=== PATIENT | female | born 1960 | race Two or more races ===

== ENCOUNTER 2024-11-02 15:48 | Emergency (ER) | payer MEDICARE, MEDICAID, SELFPAY ==
[2024-11-02 16:14] VITALS: BP 137/65; PULSE 65; RESP 18; TEMP 36.6; O2SAT 95
--- NOTE | 2024-11-02 16:25 | EKG_ITS ---
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
--- NOTE | 2024-11-02 16:25 | XR_ITS ---
Examination: PA chest single view TECHNIQUE: Upright PA chest single view Exam date and time: November 02, 2024 at 1640 hours INDICATIONS: Headaches chest pain dizziness beginning 4 days ago. FINDINGS: Mild enlargement cardiac contour Mild vascular congestion No lobar pneumonia or pulmonary edema Mild accentuation basilar bronchovascular markings IMPRESSION: Mild vascular congestion Suspicious for basilar bronchitis
--- NOTE | 2024-11-02 16:25 | XR_ITS ---
Examination: CT brain head without contrast. 2-D sagittal coronal reconstructions Date and time of exam:November 02, 2024 at 1651 hours Comparison August 09, 2021 , History left basal ganglia CVA INDICATIONS: Dizziness episodes beginning 4 days ago with numbness in both arms CTDI: vol (mGy):56.8 DLP: (mGycm):1087 Technique: Multiple CT axial sections of the brain have been obtained, 5 mm slice thickness. Contrast has not been administered. 2-D sagittal, coronal reconstructions have been obtained Low dose protocols were performed. One or more of the following dose reduction techniques were used; automated exposure control, adjustment of the mA and/or KV according to patient size, use of iterative reconstruction technique. Findings: No significant ventricular enlargement. Intra-axial or extra-axial hemorrhage density is not seen. No mass effect or midline shift Basal cisterns are not remarkable. Fourth ventricle is midline. Cranial vault intact. Acute left maxillary sinusitis Bilateral chronic mastoiditis Impression: Negative for acute hemorrhage, mass effect or midline shift As clinically warranted, consider brain MRI follow-up stroke protocol
--- NOTE | 2024-11-02 16:26 | PD.EDADULT ---
ED General RME/HPI General Chief complaint: General Adult/Misc Complain Stated complaint: UTI SINCE THURSDAY NOT GETTING BETTER Time Seen by Provider: 11/02/24 16:08 Arrival date/time: 11/02/24 15:48 RME / HPI RME / HPI narrative: 64-year-old female patient with significant history of hypothyroidism, hypertension diabetes mellitus, came in for evaluation regarding multiple complaints. Patient told me that this been having dizziness with vertigo, described as everything spinning, for the last few days, associated with pain and numbness to the left upper extremity. Patient also complained of not feeling well. Including chest discomfort. Severity mild. Patient is currently taking antibiotic for UTI however she thinks is not working. Denies any fever denies any cough denies any abdominal pain no medications taken prior to arrival. Patient is ambulatory with walker. Related Data Home Medications ?Medication ?Instructions ?Recorded ?Confirmed aspirin 81 mg tablet,delayed 81 mg PO QDAY ##0 11/04/16 04/01/20 release hydrochlorothiazide 25 mg tablet 25 mg PO QAM #0 tabs 11/04/16 04/01/20 levothyroxine 100 mcg tablet 100 mcg PO QDAY #0 tabs 11/04/16 04/01/20 (Synthroid) lisinopril 20 mg tablet 20 mg PO QDAY #0 tabs 11/04/16 04/01/20 lovastatin 20 mg tablet 20 mg PO HS #0 tabs 11/04/16 04/01/20 metformin 500 mg tablet 500 mg PO BIDAC #0 tabs 11/04/16 04/01/20 (Glucophage) Previous Rx's ?Medication ?Instructions ?Recorded acetaminophen 500 mg tablet (Pain 1,000 mg (2 x 500 mg) PO Q6H PRN 12/29/23 Relief (acetaminophen)) pain #30 tabs lidocaine 5 % topical patch 1 patch topical QDAY #15 ea 12/29/23 (Lidoderm) acetaminophen 300 mg-codeine 30 mg 1 tab PO Q8H PRN pain #20 tabs 12/30/23 tablet meclizine 25 mg tablet 25 mg PO BID PRN dizziness #14 tabs 11/02/24 Allergies Allergy/AdvReac Type Severity Reaction Status Date / Time No Known Allergies Allergy Verified 12/29/23 09:22 Review of Systems Review of Systems Narrative Review of Systems: Review of system reviewed and within normal limits except mentioned in HPI ED Exam Narrative Physical exam: VITAL SIGNS: Reviewed. GENERAL APPEARANCE: Alert and interactive, follows commands, no acute distress, HEAD AND FACE: Non-traumatic. ENT: PERRL, pink conjunctivitis, eyelid no trauma, Mucous membrane moist. NECK: Supple, nontender, no nuchal rigidity. CHEST: No tenderness, no crepitus, no paradoxical movement, no retractions. LUNGS: Clear, well ventilated, symmetric, no rales, no wheezing, no ronchi, no stridor, good breath sounds bilaterally. HEART: Regular rate, regular rhythm, no murmur, no gallops. ABDOMEN: Soft, positive bowel sounds, nondistended, no guarding, nontender, no rebound, no masses, RECTAL: Deferred. GENITAL: Deferred. NEUROLOGICAL: Gross motor function intact sensory function intact, Appropriate for age. MUSCULOSKELETAL: low back nontender, full range of motion. EXTREMITIES: Nontender, full range of motion. SKIN: Color pink, dry, no rash, no lacerations, no abrasions, no contusions. LYMPHATICS: Deferred. Course Quality Measures none Orders Category Date Time Status EKG (ED ONLY) *Do not use* NOW Care 11/02/24 16:[address] head/brain wo con Stat Exams 11/02/24 16:25 Completed EKG (ED Only) Stat Exams 11/02/24 16:25 Draft XR chest 1V Stat Exams 11/02/24 16:25 Completed B-Type Natriuretic Peptide Stat Lab 11/02/24 16:39 Completed CBC Stat Lab 11/02/24 16:39 Completed Comprehensive Metabolic Panel Stat Lab 11/02/24 16:39 Completed Partial Thromboplastin Time Stat Lab 11/02/24 16:39 Completed Prothrombin Time with INR Stat Lab 11/02/24 16:39 Completed Troponin I Stat Lab 11/02/24 16:39 Completed Troponin I Stat Lab 11/02/24 19:36 Completed Urinalysis, C/S if Indicated Stat Lab 11/02/24 16:52 Completed Meclizine HCl [Antivert] Med 11/02/24 16:25 Discontinued 25 mg PO X1 ONE Vital Signs Vital signs: Vital Signs Temperature 97.8 F 11/02/24 16:14 Pulse Rate 65 11/02/24 16:14 Respiratory Rate 18 11/02/24 16:14 Blood Pressure 137/65 H 11/02/24 16:14 Pulse Oximetry (%) 95 11/02/24 16:14 Oxygen Delivery Method Room Air 11/02/24 16:14 [facility] Patient data External records reviewed:: None Clinical information provided by:: patient Social determinants that could affect healthcare access:: none Patient has the following chronic illnesses:: # Hypertension diabetes mellitus How is presenting disease/condition affected by chronic disease/condition?: exacerbated by Evaluation data The following diagnostics were reviewed and interpreted by me:: lab results, radiology exam(s) and EKG tracing(s) Lab and/or radiology exams considered but not ordered:: None Interpretation Summary: See results in MDM Medications Medications considered but not ordered:: None Medication administrations:: Medication Administration History Discontinued Medications Meclizine HCl (Meclizine Hcl 25 Mg Tablet) 25 mg PO X1 ONE Stop: 11/02/24 16:26 Last Admin: 11/02/24 16:30 Dose: 25 mg Documented By: OA Meclizine Consultations Consultation(s) initiated? (list below): No Diagnosis Differential Diagnosis ED Complaint MDM: Dizziness, UTI, dehydration Most likely diagnosis given after review of the tests above:: Dizziness, UTI Admission Indicated Admission indicated?: not indicated Explain why admission is indicated or not indicated:: Stable Admission Request Was there a request for admission?: No Disposition Plan Disposition Plan: Discharge Discharge Attestation Discharge Attestation: The patient and all family members were given an opportunity to ask questions and understood the discharge instructions. Discharge instructions specifically effects, indications for sooner follow up or return to the emergency department, and the expected course of current diagnosis. Patient condition: Stable Medical Decision Making [facility] Narrative MDM Narrative: 64-year-old female patient with significant history of hypothyroidism, hypertension diabetes mellitus, came in for evaluation regarding multiple complaints. Patient told me that this been having dizziness with vertigo, described as everything spinning, for the last few days, associated with pain and numbness to the left upper extremity. Patient also complained of not feeling well. Including chest discomfort. Severity mild. Patient is currently taking antibiotic for UTI however she thinks is not working. Denies any fever denies any cough denies any abdominal pain no medications taken prior to arrival. Patient is ambulatory with walker. EKG showed sinus bradycardia, ventricular rate of 81 bpm, no ST segment elevation depression noted. CT scan of the head came back unremarkable. Laboratory workup was significant for UTI. However it was contaminated. No leukocytosis noted. Patient troponin was noted to be 0.050. Repeat troponin is still the same. Patient is denying any chest pain. Patient was noted to be ambulatory with a walker. Patient appears nontoxic and hemodynamically stable. Patient discharged home and instructed to follow-up with primary care provider in 24 to 48 hours. Instructed to return to the emergency department immediately if worsening of symptoms Differential Diagnosis Differential Diagnosis: Dizziness, UTI, dehydration Lab Data 11/02/24 16:39 11/02/24 16:39 Labs: Lab Results 11/02/24 11/02/24 11/02/24 Range/Units 16:39 16:52 19:36 WBC 6.7 (3.6-11.0) Thou/mm3 RBC 3.05 L (4.00-5.20) Miln/mm3 Hgb 11.3 L (12.0-16.0) g/dL Hct 33.2 L (36.0-46.0) % MCV 109 H (80-100) fL MCH 37.0 H (25.0-35.0) pg MCHC 34.0 (31.0-37.0) g/dl RDW Std Deviation 70.5 H (36.4-46.3) fL Plt Count 179 (140-440) Thou/mm3 Neut % (Auto) 48 (37-80) % Lymph % (Auto) 42 (10-50) % Hill % (Auto) 5 (0-12) % Eos % (Auto) 4 (0-10) % Baso % (Auto) 1 (0-2.5) % Neut # (Auto) 3.2 (1.8-7.7) Thou/mm3 Lymph # (Auto) 2.8 (1.0-4.8) Thou/mm3 Hill # (Auto) 0.4 (0.0-0.8) Thou/mm3 Eos # (Auto) 0.3 (0.0-0.5) Thou/mm3 Baso # (Auto) 0.1 (0.0-0.2) Thou/mm3 Immature Gran # (Auto) 0.01 H (0.00-0.00) Thou/mm3 Absolute Nucleated RBC 0.00 (0.00-0.00) Thou/mm3 Immature Gran % 0 (0-0) % Nucleated RBC % 0 (0) /100 WBC PT 11.0 (9.0-12.2) Seconds INR 1.0 (0.9-1.3) APTT 25.3 (22.0-36.0) Seconds Sodium 136 (136-145) mMol/L Potassium 5.3 H (3.4-5.1) mMol/L Chloride 99 (98-107) mMol/L Carbon Dioxide 29.9 (20.0-31.0) mMol/L Anion Gap 7 (7-16) BUN 34 H (9-23) mg/dL Creatinine 1.9 H (0.6-1.3) mg/dL Estim Creat Clear Calc Not Performed. eGFR 29 L (60 - ) See Note BUN/Creatinine Ratio 18 (12-20) Ratio Glucose 93 (74-106) mg/dL Calculated Osmolality 279 (275-295) Calcium 9.3 (8.3-10.6) mg/dL Corrected Calcium 9.3 (8.5-10.1) mg/dL Total Bilirubin 0.5 (0.3-1.2) mg/dL AST 24 (0-34) U/L ALT 9 L (10-49) U/L Alkaline Phosphatase 45 L (46-116) U/L Troponin I 0.050 H* 0.050 H* (0.0-0.045) ng/mL B-Natriuretic Peptide 103 H (0-100) pg/mL Total Protein 8.0 (5.7-8.2) gm/dL Albumin 4.0 (3.4-4.8) gm/dL Globulin 4.0 H (2.3-3.5) gm/dL Albumin/Globulin Ratio 1.0 L (1.2-2.2) Ur Collection Type Clean Catch Urine Color Yellow (Lt Yel-Yel) Urine Clarity Turbid A (Clear/Hazy) Urine pH 5.5 (5.0-7.0) Ur Specific [place] 1.019 (1.001-1.035) Urine Protein Trace (Neg - Trace) Urine Glucose (UA) Negative (Negative) Urine Ketones Negative (Negative) Urine Blood 1+ A (Negative) Urine Nitrite Negative (Negative) Urine Bilirubin Negative (Negative) Urine Urobilinogen (Auto) 3.0 (0.0-1.0) mg/dL Ur Leukocyte Esterase Positive (Negative) Urine RBC 6 H (0-3) /hpf Urine WBC 29 H (0-5) /hpf Ur Squamous Epith Cells 20 H (0-5) /hpf Urine Bacteria 2+ A (None) Hyaline Casts 3 H (0-1) /hpf Ur Culture Indicated? Contaminated Discharge Plan Plan Patient Disposition: HOME (Self Care) Disposition Comment: Stable Prescriptions/Referrals Prescriptions/Med Rec: New meclizine 25 mg tablet 25 mg PO BID PRN (Reason: dizziness) Qty: 14 0RF No Action metformin [Glucophage] 500 MG tablet 500 mg PO BIDAC Qty: 0 lisinopril 20 MG tablet 20 mg PO QDAY Qty: 0 aspirin 81 mg Tablet,Delayed Release (Dr/Ec) 81 mg PO QDAY Qty: 0 levothyroxine [Synthroid] 100 mcg Tablet 100 mcg PO QDAY Qty: 0 hydrochlorothiazide 25 MG tablet 25 mg PO QAM Qty: 0 lovastatin 20 MG tablet 20 mg PO HS Qty: 0 acetaminophen [Pain Relief (acetaminophen)] 500 mg tablet 1,000 mg PO Q6H PRN (Reason: pain) Qty: 30 0RF lidocaine [Lidoderm] 5 % adhesive patch,medicated 1 patch topical QDAY Qty: 15 0RF Rx Instructions: leave on most painful area for up to 12 hrs acetaminophen-codeine 300-30 mg tablet 1 tab PO Q8H PRN (Reason: pain) Qty: 20 0RF Referrals: Maurilio Lowry MD [Primary Care Provider] - In 1 week Problem List Clinical Impression: Dizziness, UTI (urinary tract infection) Patient/Caregiver Discharge Instructions Discharge Activity: activity as tolerated Education Materials: ED Dizziness, Uncertain Cause Additional Instructions: Thank you for the opportunity for serving you today. You are stable for discharged . You are advised to: Follow-up with your PCP in 1 to 2 days Return to ED for worsening of symptoms Increase oral fluids Take medication as prescribed Continue taking your antibiotic prescribed your PCP Print Language: Korean Stand Alone Forms: Stella Award Info., Patient Portal Info Letter PA/MANUEL Supervising Physician GERARDO/MANUEL Supervising Physician: MD Edi
[2024-11-02] MEDS: MECLIZINE HCL 25 MG TABLET PO (16:30)
[2024-11-02 17:00] LABS: Collection Type, Urine Clean Catch
[2024-11-02 17:07] LABS: Basophils # (Auto) 0.1 Thou/mm3 (0.0-0.2); Basophils % (Auto) 1 % (0-2.5); Eosinophils # (Auto) 0.3 Thou/mm3 (0.0-0.5); Eosinophils % (Auto) 4 % (0-10); Hematocrit 33.2 % (36.0-46.0); Hemoglobin 11.3 g/dL (12.0-16.0); Immature Granulocytes % (Auto) 0 % (0-0); Immature Granulocytes Auto 0.01 Thou/mm3 (0.00-0.00); Lymphocytes # (Auto) 2.8 Thou/mm3 (1.0-4.8); Lymphocytes % (Auto) 42 % (10-50); Mean Corpuscular Volume 109 fL (80-100); Monocytes # (Auto) 0.4 Thou/mm3 (0.0-0.8); Monocytes % (Auto) 5 % (0-12); Neutrophils # (Auto) 3.2 Thou/mm3 (1.8-7.7); Neutrophils % (Auto) 48 % (37-80); Nucleated Red Blood Cell % 0 /100 WBC (0); Platelet Count 179 Thou/mm3 (140-440); RDW Standard Deviation 70.5 fL (36.4-46.3); Red Blood Count 3.05 Miln/mm3 (4.00-5.20); White Blood Count 6.7 Thou/mm3 (3.6-11.0)
[2024-11-02 17:19] LABS: B-Type Natriuretic Peptide 103 pg/mL (0-100); Partial Thromboplastin Time 25.3 Seconds (22.0-36.0)
[2024-11-02 17:23] LABS: Bacteria,Urine 2+; Bilirubin,Urine Negative (Negative); Blood,Urine 1+ (Negative); Clarity,Urine Turbid (Clear/Hazy); Color,Urine Yellow (Lt Yel-Yel); Culture Indicated,Urine Contaminated; Glucose, Urine Negative (Negative); Hyaline Casts,Urine 3 /hpf (0-1); Ketones,Urine Negative (Negative); Leukocyte Esterase,Urine Positive (Negative); Nitrite,Urine Negative (Negative); PH,Urine 5.5 (5.0-7.0); Protein,Urine Trace (Neg - Trace); RBC,Urine 6 /hpf (0-3); Specific Gravity,Urine 1.019 (1.001-1.035); Squamous Epithelial Cell,Urine 20 /hpf (0-5); WBC,Urine 29 /hpf (0-5)
[2024-11-02 17:31] LABS: Alanine Aminotransferase 9 U/L (10-49); Alkaline Phosphatase 45 U/L (46-116); Anion Gap 7 (7-16); Aspartate Amino Transferase 24 U/L (0-34); BUN/Creatinine Ratio 18 Ratio (12-20); Bilirubin,Total 0.5 mg/dL (0.3-1.2); Blood Urea Nitrogen 34 mg/dL (9-23); Calcium 9.3 mg/dL (8.3-10.6); Calcium (Corrected) 9.3 mg/dL (8.5-10.1); Carbon Dioxide 29.9 mMol/L (20.0-31.0); Chloride 99 mMol/L (98-107); Creatinine (Component) 1.9 mg/dL (0.6-1.3); Glucose 93 mg/dL (74-106); Osmolality,Calculated 279 (275-295); Potassium 5.3 mMol/L (3.4-5.1); Sodium 136 mMol/L (136-145); eGFR 29 See Note
[2024-11-02 19:34] VITALS: BP 125/88; PULSE 54; RESP 18; TEMP 36.8; O2SAT 96
== END 2024-11-02 22:24 | disposition home or self-care (01) ==
PROVIDERS: Nurse Practitioner Family; Emergency Provider Emergency Medicine; PCP Student in an Organized Health Care Education/Training Program
DX: N39.0 Urinary tract infection, site not specified (principal); R00.1 Bradycardia, unspecified; R42 Dizziness and giddiness; E11.9 Type 2 diabetes mellitus without complications; I10 Essential (primary) hypertension; E03.9 Hypothyroidism, unspecified
CPT/HCPCS: 36415; 70450; 71045; 80053; 81001; 83880; 84484; 85025; 85610; 85730; 93005; 99284; A9270